=== PATIENT | female | born 1960 | race Caucasian/White ===

== ENCOUNTER 2020-01-31 15:18 | Inpatient (IN) | payer MEDICAID ==
[~2020-01-31] VITALS: Ht 167.6 cm; Wt 92.1 kg
[2020-01-31] MEDS ORDERED: ACETAMINOPHEN 325MG TABLET PO ONE (16:30)
[2020-01-31 16:45] LABS: BASOPHILS % 0.7 % (0.0-2.0); EOSINOPHILS % 2.6 % (0.0-5.0); HEMATOCRIT. 39.5 % (36.0-48.0); HEMOGLOBIN. 13.5 g/dL (12.0-16.0); MEAN CORPUSCULAR HEMOGLOBIN 29.8 pg (28.0-32.0); MEAN CORPUSCULAR VOLUME 87.1 fL (81.0-99.0); MEAN PLATELET VOLUME 11.5 fl (7.4-10.4); MONOCYTES % 11.4 % (2.0-8.0); NEUTROPHILS % 46.3 % (40.0-76.0); RED BLOOD CELL COUNT 4.53 mill/uL (4.2-5.4); RED CELL DISTRIBUTION WIDTH 15.4 % (11.6-14.6)
[2020-01-31 16:51] LABS: CHLORIDE 112 mEq/L (98-107)
[2020-01-31 17:03] LABS: CLARITY URINE CLEAR (CLEAR); COLOR URINE YELLOW (YELLOW); KETONES URINE NEGATIVE (NEGATIVE); LEUKOCYTE ESTERASE URINE TRACE (NEGATIVE); NITRITE URINE NEGATIVE (NEGATIVE); OCCULT BLOOD URINE NEGATIVE (NEGATIVE); PH URINE 6.5 (4.5-8.0); PROTEIN URINE NEGATIVE (NEGATIVE)
[2020-01-31] MEDS ORDERED: NITROGLYCERIN 0.4MG TABLET SL SL PRN (18:45)
[2020-01-31 19:08] LABS: D-DIMER 0.49 mg/L FEU (<0.50); INR 1.1; PROTHROMBIN TIME 11.6 sec (9.6-11.0)
[2020-01-31] MEDS ORDERED: ACETAMINOPHEN 325MG TABLET PO PRN (19:15)
[2020-01-31] MEDS ORDERED: ONDANSETRON HCL 4MG/2ML INJ IV PRN (19:15)
[2020-01-31] MEDS ORDERED: BENZONATATE 100MG CAPSULE PO PRN (19:15)
[2020-01-31] MEDS: METOPROLOL TARTRATE 25MG TABLET PO SCH (21:55)
[2020-02-01] VITALS (7 sets, daily range): BP systolic 118–139; BP diastolic 58–81
[2020-02-01] MEDS: MORPHINE SULFATE 2 MG/ML CPJ (NOT FOR IM USE) IV PRN ×2 (02:50→11:27)
[2020-02-01] MEDS ORDERED: P20 PO (03:01)
[2020-02-01] MEDS ORDERED: ATOR40TA70 PO (03:01)
[2020-02-01] MEDS ORDERED: PROP10TA10 PO (03:01)
[2020-02-01] MEDS ORDERED: LEVO125T8 PO (03:01)
[2020-02-01] MEDS ORDERED: LISI-604 PO (03:01)
[2020-02-01] MEDS ORDERED: AMLO10TA80 PO (03:01)
[2020-02-01] MEDS: METOPROLOL TARTRATE 25MG TABLET PO SCH ×2 (08:34→08:53)
[2020-02-01] MEDS ORDERED: CLOPIDOGREL 75MG TABLET PO SCH (09:00)
[2020-02-01] MEDS ORDERED: ENOXAPARIN 40MG/0.4ML SYR SUBCUT SCH (09:00)
[2020-02-01 11:31] LABS: PLATELET 37 x1000/uL (130-400)
[2020-02-02 01:27] LABS: *AMPHETAMINES SCREEN URINE NEGATIVE (NEGATIVE); *BARBITURATES SCREEN URINE NEGATIVE (NEGATIVE); *BENZODIAZEPINES SCREEN URINE NEGATIVE (NEGATIVE); *COCAINE SCREEN URINE NEGATIVE (NEGATIVE); METHADONE URINE SCREEN NEGATIVE (NEGATIVE); OPIATES URINE SCREEN PRESUMTIVE POSITIVE (NEGATIVE)
[2020-02-02 01:28] LABS: CANNABINOID URINE SCREEN NEGATIVE (NEGATIVE); PHENCYCLIDINE URINE SCREEN NEGATIVE (NEGATIVE)
[2020-02-02 04:38] VITALS: BP 150/65
[2020-02-02 08:00] VITALS: BP 131/76
[2020-02-02] MEDS ORDERED: LISINOPRIL 20MG TABLET PO SCH (09:00)
[2020-02-02] MEDS ORDERED: ATORVASTATIN CALCIUM 40MG TABLET PO SCH (09:00)
[2020-02-02] MEDS ORDERED: PROPRANOLOL HCL 10MG TABLET PO SCH (09:00)
[2020-02-02] MEDS ORDERED: AMLODIPINE 10MG TABLET PO SCH (09:00)
[2020-02-02] MEDS ORDERED: REGADENOSON 0.4 MG/5 ML IV ONE ×2 (09:15→13:48)
[2020-02-02 12:00] VITALS: BP 123/64
[2020-02-02 13:07] LABS: T4 FREE 1.46 ng/dL (0.76-1.46)
[2020-02-02 16:00] VITALS: BP 144/83
[2020-02-02 16:11] VITALS: BP 144/83
[2020-02-03 08:07] LABS: HIV SCREEN 4G Non Reactive (Non Reactive)
== END 2020-02-02 17:00 | disposition home or self-care (01) | DRG 720 ==
LOC: ER 15:18 → EDBD 19:03 → 7WST 19:03 → ENRESERV 02-01 01:19 → 6WST 02-01 23:21
PROVIDERS: ADMIT Internal Medicine; ATTEND Internal Medicine
DX: A41.9 Sepsis, unspecified organism (principal); J96.00 Acute respiratory failure, unspecified whether with hypoxia or hypercapnia; D69.6 Thrombocytopenia, unspecified; Z20.828 Contact with and (suspected) exposure to other viral communicable diseases; E87.8 Other disorders of electrolyte and fluid balance, not elsewhere classified; I50.9 Heart failure, unspecified; I11.0 Hypertensive heart disease with heart failure; E03.9 Hypothyroidism, unspecified; D61.818 Other pancytopenia; E66.9 Obesity, unspecified; E78.5 Hyperlipidemia, unspecified; I25.10 Atherosclerotic heart disease of native coronary artery without angina pectoris; E78.00 Pure hypercholesterolemia, unspecified; Z82.49 Family history of ischemic heart disease and other diseases of the circulatory system; Z90.710 Acquired absence of both cervix and uterus; Z85.828 Personal history of other malignant neoplasm of skin; Z85.3 Personal history of malignant neoplasm of breast; Z68.32 Body mass index [BMI] 32.0-32.9, adult
CPT/HCPCS: 36415; 71045; 78452; 80053; 80061; 80305; 81003; 82105; 82378; 82693; 83605; 83880; 84145; 84439; 84443; 84481; 84484; 85025; 85379; 87389; 93005; 93017; 93306; 93970; 97162; 99285; A9500; J2270; J2405; J2785; U0003-CS